=== PATIENT | female | born 1960 | race Caucasian/White ===

== ENCOUNTER → 2017-03-01 | Outpatient (CLI) | payer OTHER ==
--- NOTE | 2017-03-01 14:25 | BD ---
EXAMINATION TYPE: MG DEXA axial skeleton. DATE OF EXAM: 03/01/2017 COMPARISON: NONE CLINICAL HISTORY: Postmenopausal female Height: 64 Weight: 125.0 FRAX RISK QUESTIONS: Alcohol (3 or more units per day): no Family History (Parent hip fracture): no Glucocorticoids (More than 3mos): no (Ex: prednisone, prednisolone, methylprednisolone, dexamethasone, and hydrocortisone). History of Fracture in Adulthood: no Secondary Osteoporosis: 1. Type 1 Diabetes: no 2. Hyperthyroidism: no 3. Menopause before 45: no 4. Malnutrition: no 5. Chronic liver disease: no Rheumatoid Arthritis: no Current Tobacco Use: no RISK FACTORS HISTORY OF: Hip Fracture (Right/Left): no Spine Fracture: no History of Wrist Fracture: no Surgery to Spine/Hip(right/left)/Wrist (right/left): no Family History of Osteoporosis: no Active: yes Diet low in dairy products/other sources of calcium: yes Postmenopausal woman: ablation at age 46 Take estrogen and/or progesterone medications: yes How long: since age 46 Lost more than 2 inches in height since high school: no Frequent falls: no Poor Health: no Hyperparathyroidism: no Adrenal Insufficiency: no MEDICATIONS: high blood pressure meds x2 Additional History: EXAM MEASUREMENTS: Bone mineral densitometry was performed using the [employer] System. Bone mineral density as measured about the Lumbar spine is: ----- L1-L4(G/cm2): 1.355 T Score Values are as follows: ----- L2: 1.4 ----- L3: 1.7 ----- L4: 1.7 ----- L1-L4: 1.5 Bone mineral density baseline here Bone mineral density about the R hip (g/cm2): 1.027 Bone mineral density about the L hip (g/cm2): 1.072 T Score values are as follows: -----R Neck: -0.1 -----L Neck: 0.2 -----R Total: 0.3 -----L Total: 0.4 Bone mineral density baseline here IMPRESSION: Normal (Values between +1 and -1 indicate normal bone mass). Consider repeating this study in 5 year s or sooner if there is some new clinical indication. NOTE: T-SCORE=SD OF THE YOUNG ADULT MEAN.
== END | disposition home or self-care (01) ==
LOC: RADBDWWP 12:48
PROVIDERS: ATTEND Internal Medicine
DX: M81.0 Age-related osteoporosis without current pathological fracture (principal); E55.9 Vitamin D deficiency, unspecified
CPT/HCPCS: 77080

== ENCOUNTER → 2018-05-26 | Outpatient (CLI) | payer OTHER ==
--- NOTE | 2018-05-27 14:33 | MR ---
EXAMINATION TYPE: MR shoulder LT wo con DATE OF EXAM: 05/26/2018 COMPARISON: None HISTORY: Pain in left shoulder, Impingment TECHNIQUE: Multiplanar, multisequence imaging of the left shoulder is performed without contrast. FINDINGS: There is a small amount of fluid within the joint space the glenohumeral joint. Glenohumera l ligaments intact. Hypertrophic changes of the AC joint are noted which results in mild mass effect upon the supraspinat us tendon and muscle. There is diffuse tendinopathy of the supraspinatus tendon. There is a through thickness partial tear extending a length of 9 mm in transverse dimension of 10 mm involving the very distal margin of the s upraspinatus tendon. No retraction. Diffuse tendinopathy and intrasubstance tear of the insertion of the infraspinatus tendon with no ret raction. Bicipital tendon is well situated within the bicipital groove. Bony labrum are intact. There does krissy ear to be increased fluid within the tendon sheath of the bicipital tendon compatible tendinosis. No marrow edema or contusion. IMPRESSION: 1. Diffuse tendinopathy of the distal supraspinatus tendon with a partial through thickness tear at i ts distal margin measuring approximately 9 mm in length by 1 cm in transverse diameter. No retraction . 2. Diffuse tendinopathy of the insertion of the distal margin of the infraspinatus tendon with no def inite through thickness tear. 3. Bicipital tendinosis. 4. Impingement secondary to AC joint arthropathy.
== END | disposition home or self-care (01) ==
LOC: RADMRIMAIN 15:40
PROVIDERS: ATTEND Emergency Medicine
DX: S46.012A Strain of muscle(s) and tendon(s) of the rotator cuff of left shoulder, initial encounter (principal); M75.42 Impingement syndrome of left shoulder; M19.012 Primary osteoarthritis, left shoulder; M67.814 Other specified disorders of tendon, left shoulder